=== PATIENT | male | born 1965 | race Caucasian/White ===

== ENCOUNTER 2018-11-02 12:33 | Outpatient (CLI) | payer BC ==
--- NOTE | 2018-11-02 13:22 | RAD ---
PA AND LATERAL VIEWS CHEST: Date: 11/02/18 HISTORY: Dyspnea. FINDINGS: There are changes of median sternotomy. The heart is enlarged. No focal areas of consolidation, pneum othoraces, stephanie pulmonary edema, or pleural effusions are seen. No acute osseous abnormalities are i dentified. IMPRESSION: Cardiomegaly without radiographic evidence of overt CHF. POS: [facility]
== END 2018-11-02 12:34 | disposition home or self-care (01) ==
LOC: RAD 12:33
PROVIDERS: ATTEND Internal Medicine Critical Care Medicine
DX: R06.00 Dyspnea, unspecified (principal); I51.7 Cardiomegaly
CPT/HCPCS: 71046